=== PATIENT | female | born 1970 | race Two or more races ===

== ENCOUNTER 2021-03-22 21:18 | Emergency (ER) | payer SELFPAY ==
[2021-03-22 21:21] VITALS: BP 137/84
[2021-03-22] MEDS ORDERED: PHENAZOPYRIDINE 200 MG TABLET PO ONE (23:30)
[2021-03-22] MEDS ORDERED: CEFDINIR 300 MG CAPSULE PO ONE (23:30)
[2021-03-22] MEDS ORDERED: PHENAZOPYRIDINE 200 MG TABLET ONE (23:35)
[2021-03-22] MEDS ORDERED: CEFDINIR 300 MG CAPSULE ONE (23:35)
[2021-03-22] MEDS ORDERED: PLEASE ENTER ALLERGIES MC SCH (23:45)
--- NOTE | 2021-03-23 00:01 | NUR ---
F/U AND D/C INSTRUCTIONS GIVEN TO PT WITH PRESCRIPTIONS AND SHE V/U. PT D/C'D WITHOUT INCIDENT.
== END 2021-03-23 00:03 | disposition home or self-care (01) ==
LOC: ED 23:30
DX: N30.00 Acute cystitis without hematuria (principal); Z76.0 Encounter for issue of repeat prescription
CPT/HCPCS: 99283